=== PATIENT | male | born 1980 | race African-American/Black ===

== ENCOUNTER 2016-06-03 19:07 | Emergency (ER) | payer MEDICAID ==
[2016-06-03 19:12] VITALS: BP 140/86
[2016-06-03] MEDS ORDERED: IBUPROFEN 800 MG TABLET PO ONE (19:30)
--- NOTE | 2016-06-03 19:30 | ER Document Report ---
ED Medical Screen (RME) - General Chief Complaint: Abdominal Pain Stated Complaint: RECTAL BLEEDING Mode of Arrival: Ambulatory Information source: Patient Notes: Patient presents to the emergency department with complaints of rectal bleeding since 12:00 today patient reports approximately 4 bowel movements since noon. Reports blood in the water and in the stool. Denies past medical history of rectal bleed. Denies hemorrhoids. Denies trauma. Reports left upper quadrant abdominal pain. Reports POLANCO. I have greeted and performed a rapid initial assessment of this patient. A comprehensive ED assessment and evaluation of the patient, analysis of test results and completion of the medical decision making process will be conducted by additional ED providers. TRAVEL OUTSIDE OF THE [place] IN LAST 30 DAYS: No - Related Data Allergies/Adverse Reactions: No Known Allergies Allergy (Verified 06/17/14 17:35) Past Medical History Pulmonary Medical History: Reports: Hx Asthma Psychiatric Medical History: Reports: Hx Bipolar Disorder, Hx Depression Past Surgical History: Reports: Hx Tonsillectomy - Immunizations Hx Diphtheria, Pertussis, Tetanus Vaccination: Yes - 2011 Physical Exam - Vital signs Vitals: Temp Pulse Resp BP Pulse Ox 99.1 F 84 14 140/86 H 96 06/03/16 19:11 06/03/16 19:11 06/03/16 19:11 06/03/16 19:11 06/03/16 19:11 Course - Vital Signs Vital signs: Temp Pulse Resp BP Pulse Ox 99.1 F 84 14 140/86 H 96 06/03/16 19:11 06/03/16 19:11 06/03/16 19:11 06/03/16 19:11 06/03/16 19:11
== END 2016-06-04 05:58 | disposition left against medical advice (07) ==
LOC: ER 19:07
DX: K62.5 Hemorrhage of anus and rectum (principal); R10.12 Left upper quadrant pain; R51 Headache; J45.909 Unspecified asthma, uncomplicated; Z53.20 Procedure and treatment not carried out because of patient's decision for unspecified reasons
CPT/HCPCS: 99281

== ENCOUNTER 2016-06-04 07:44 | Emergency (ER) | payer MEDICAID ==
[2016-06-04 08:03] VITALS: BP 144/95
[2016-06-04] MEDS ORDERED: PROCHLORPERAZINE EDISYLATE INJ 10 MG/2 ML VIAL IV ONE (09:24)
[2016-06-04] MEDS ORDERED: DIPHENHYDRAMINE HCL 50 MG/ML VIAL IV ONE (09:24)
[2016-06-04] MEDS ORDERED: NORMAL SALINE 1000 ML 1,000 ML IV ONE (09:25)
[2016-06-04 09:36] LABS: ABSOLUTE BASOPHILS # (AUTO) 0.1 10^3/uL (0.0-0.2); ABSOLUTE EOSINOPHILS # (AUTO) 0.1 10^3/uL (0.0-0.6); ABSOLUTE MONOCYTES (AUTO) 0.7 10^3/uL (0.1-1.4); ABSOLUTE NEUT (AUTO) 6.3 10^3/uL (1.7-8.2); BASOPHILS % (AUTO) 0.8 % (0-2); HEMATOCRIT 44.5 % (37.9-51.0); HEMOGLOBIN 15.1 g/dL (13.5-17.0); HGB HCT DIFFERENCE 0.8; LYMPHOCYTES % (AUTO) 29.9 % (13-45); MEAN CORPUSCULAR HEMOGLOBIN 30.1 pg (27.0-33.4); MEAN CORPUSCULAR VOLUME 88 fl (80-97); MONOCYTES % (AUTO) 6.4 % (3-13); RED BLOOD COUNT 5.03 10^6/uL (4.35-5.55); RED CELL DISTRIBUTION WIDTH 13.9 % (11.5-14.0); SEGMENTED NEUTROPHILS % (AUTO) 61.9 % (42-78); WHITE BLOOD COUNT 10.2 10^3/uL (4.0-10.5)
[2016-06-04 09:51] LABS: ALANINE AMINOTRANSFERASE 23 U/L (21-72); ALBUMIN 4.4 g/dL (3.5-5.0); ALKALINE PHOSPHATASE 88 U/L (38-126); ANION GAP 16 (5-19); ASPARTATE AMINO TRANSFERASE 20 U/L (17-59); BILIRUBIN,DIRECT 0.3 mg/dL (0.0-0.4); BILIRUBIN,TOTAL 0.4 mg/dL (0.2-1.3); BLOOD UREA NITROGEN 13 mg/dL (7-20); CARBON DIOXIDE 24 mmol/L (22-30); CHLORIDE 103 mmol/L (98-107); CREATININE RESULT 0.92 mg/dL (0.52-1.25); GLUCOSE 155 mg/dL (75-110); POTASSIUM 4.4 mmol/L (3.6-5.0); SODIUM 143.4 mmol/L (137-145); TOTAL PROTEIN 7.1 g/dL (6.3-8.2)
--- NOTE | 2016-06-04 10:59 | ER Document Report ---
ED General - General Chief Complaint: Rectal Bleeding Stated Complaint: RECTAL BLEEDING Mode of Arrival: Medic Information source: Patient Notes: 36-year-old male presents as a rectal bleeding bright red with rectal pain however while in the emergency bone patient also admits that he has had headaches intermittently as well as increased thirst. Patient admits to family history of diabetes. Admits to chronic headaches. Patient otherwise denies any fevers or chills denies any abdominal pain denies any vomiting TRAVEL OUTSIDE OF THE [place] IN LAST 30 DAYS: No - HPI Onset: Other Onset/Duration: Intermittent Quality of pain: Achy Severity: Mild Pain Level: 1 Associated symptoms: Other Exacerbated by: Other - Bowel movement Relieved by: Denies Similar symptoms previously: No Recently seen / treated by doctor: No - Related Data Allergies/Adverse Reactions: No Known Allergies Allergy (Verified 06/04/16 07:59) Past Medical History - Social History Smoking Status: Current Every Day Smoker Cigarette use (# per day): Yes Chew tobacco use (# tins/day): No Smoking Education Provided: No Frequency of alcohol use: None Drug Abuse: None Family History: Reviewed & Not Pertinent Patient has suicidal ideation: No Patient has homicidal ideation: No Pulmonary Medical History: Reports: Hx Asthma Renal/ Medical History: Denies: Hx Peritoneal Dialysis Psychiatric Medical History: Reports: Hx Bipolar Disorder, Hx Depression Past Surgical History: Reports: Hx Tonsillectomy - Immunizations Hx Diphtheria, Pertussis, Tetanus Vaccination: Yes - 2011 Review of Systems - Review of Systems Notes: REVIEW OF SYSTEMS: CONSTITUTIONAL : Denies fever, chills, or sweats. Denies recent illness. Admits to increased thirst EENT: Denies eye, ear, throat, or mouth pain or symptoms. Denies nasal or sinus congestion or discharge. Denies throat, tongue, or mouth swelling or difficulty swallowing. CARDIOVASCULAR: Denies chest pain. Denies palpitations or racing or irregular heart beat. Denies ankle edema. RESPIRATORY: Denies cough, cold, or chest congestion. Denies shortness of breath, difficulty breathing, or wheezing. GASTROINTESTINAL: Admits to rectal bleed GENITOURINARY: Denies difficulty urinating, painful urination, burning, frequency, blood in urine, or discharge. MUSCULOSKELETAL: Denies back or neck pain or stiffness. Denies joint pain or swelling. SKIN: Denies rash, lesions or sores. HEMATOLOGIC : Denies easy bruising or bleeding. LYMPHATIC: Denies swollen, enlarged glands. NEUROLOGICAL: Admits to headache PSYCHIATRIC: Denies anxiety or stress. Denies depression, suicidal ideation, or homicidal ideation. ALL OTHER SYSTEMS REVIEWED AND NEGATIVE. Dictation was performed using [employer] recognition software PHYSICAL EXAMINATION: GENERAL: Well-appearing, well-nourished and in no acute distress. HEAD: Atraumatic, normocephalic. EYES: Pupils equal round and reactive to light, extraocular movements intact, sclera anicteric, conjunctiva are normal. ENT: Nares patent, oropharynx clear without exudates. Moist mucous membranes. NECK: Normal range of motion, supple without lymphadenopathy LUNGS: Breath sounds clear to auscultation bilaterally and equal. No wheezes rales or rhonchi. HEART: Regular rate and rhythm without murmurs ABDOMEN: Soft, nontender, nondistended abdomen. No guarding, no rebound. No masses appreciated. Musculoskeletal: Normal range of motion, no pitting or edema. No cyanosis. Tender external hemorrhoid nonthrombosed NEUROLOGICAL: Cranial nerves grossly intact. Normal speech, normal gait. Normal sensory, motor exams PSYCH: Normal mood, normal affect. SKIN: Warm, Dry, normal turgor, no rashes or lesions noted. Physical Exam - Vital signs Vitals: Temp Pulse Resp BP Pulse Ox 98.5 F 83 16 144/95 H 98 06/04/16 08:01 06/04/16 08:01 06/04/16 08:01 06/04/16 08:01 06/04/16 08:01 Course - Re-evaluation Re-evalutation: 06/04/16 15:59 No significant abnormality, mild hyperglycemia was noted, given patient's increased thirst he must follow-up with a primary care physician for reevaluation. Patient is noted to have an external hemorrhoid which is not thrombosed which is probably causing his rectal bleeding. Patient was treated for his headache and is stable and wishes to be discharged home 06/04/16 16:00 After performing a Medical Screening Examination, I estimate there is LOW risk for ACUTE GLAUCOMA, TEMPORAL ARTERITIS, MENINGITIS, INCRANIAL HEMORRHAGE, or ISCHEMIC STROKE thus I consider the discharge disposition reasonable. The patient and I have discussed the diagnosis and risks, and we agree with discharging home with close follow-up with the understanding that symptoms and presentations can change. We also discussed returning to the Emergency Department immediately if new or worsening symptoms occur. We have discussed the symptoms which are most concerning (e.g., changing or worsening symptoms, new numbness or weakness, vomiting, fever) that necessitate immediate return. - Vital Signs Vital signs: Temp Pulse Resp BP Pulse Ox 98.2 F 80 16 144/95 H 98 06/04/16 11:24 06/04/16 11:24 06/04/16 11:24 06/04/16 11:24 06/04/16 11:24 - Laboratory Result Diagrams: 06/04/16 08:55 06/04/16 08:55 Laboratory results interpreted by me: 06/04/16 08:55 Glucose 155 H - Diagnostic Test Radiology reviewed: Image reviewed, Reports reviewed - EKG Interpretation by Me EKG shows normal: Sinus rhythm, [place], Intervals, QRS Complexes Discharge - Discharge Clinical Impression: External hemorrhoid, Hyperglycemia Headache Qualifiers: Headache type: unspecified Headache chronicity pattern: acute headache Intractability: not intractable Qualified Code(s): R51 - Headache Condition: Stable Disposition: HOME, SELF-CARE Instructions: Rectal Bleeding, Unclear Cause ([facility]) Additional Instructions: You must follow-up with a primary care physician regarding your blood sugar. You must return immediately if there are any other concerns Prescriptions: Promethazine HCl [Phenergan 25 mg Tablet] 1 - 2 tab PO Q6H PRN #15 tablet PRN Reason:
== END 2016-06-04 11:23 | disposition home or self-care (01) ==
LOC: ER 07:44
DX: K64.4 Residual hemorrhoidal skin tags (principal); R73.9 Hyperglycemia, unspecified; R51 Headache; K62.5 Hemorrhage of anus and rectum; F17.210 Nicotine dependence, cigarettes, uncomplicated
CPT/HCPCS: 99283; 96374; 96375; 36415; 85025; 80053; J1200; J0780; J7030

== ENCOUNTER 2018-09-21 13:20 | Emergency (ER) | payer MEDICAID ==
--- NOTE | 2018-09-21 14:12 | RADIOLOGY REPORT (SQ) ---
EXAM DESCRIPTION: CHEST 2 VIEWS COMPLETED DATE/TIME: 09/21/2018 2:03 pm REASON FOR STUDY: Stroke Alert COMPARISON: 01/11/2008 TECHNIQUE: Frontal and lateral radiographic views of the chest acquired. NUMBER OF VIEWS: Two view. LIMITATIONS: None. FINDINGS: LUNGS AND PLEURA: No pneumothorax. No consolidation or pleural effusion. MEDIASTINUM AND HILAR STRUCTURES: Stable. HEART AND VASCULAR STRUCTURES: Stable. BONES: No acute findings. HARDWARE: None in the chest. OTHER: No other significant finding. IMPRESSION: NO ACUTE FINDINGS. TECHNICAL DOCUMENTATION: JOB ID: [id number] [id number] 2010 [employer]- All Rights Reserved Reading location - IP/workstation name: [email or web address]
[2018-09-21] MEDS ORDERED: ASPIRIN 81 MG TABLET, CHEWABLE PO ONE (15:28)
--- NOTE | 2018-09-21 15:30 | ER Document Report ---
ED Medical Screen (RME) - General Chief Complaint: Chest Pain Stated Complaint: CHEST PAIN Time Seen by Provider: 09/21/18 15:27 Mode of Arrival: Ambulatory Information source: Patient Notes: 38-year-old male presented to ED for complaint of chest pain. He states he went to his primary care doctor they gave him some nitroglycerin and one baby aspirin called 911 and sending to the emergency room he does have his EKG from his previous visit this visit and the EMS as well as the EKG from his visit this time. He states the only medical history he has his arthritis. He states he does smoke a pack a day rarely drinks occasionally pot. He states he does not work at this time lives with his family. Patient is alert and oriented respirations regular and unlabored speaking in full sentences walks with a even steady gait. TRAVEL OUTSIDE OF THE [place] IN LAST 30 DAYS: No - Related Data Allergies/Adverse Reactions: Antihistamines - Alkylamine Allergy (Verified 09/21/18 13:30) peanut Allergy (Verified 09/21/18 13:30) Past Medical History Pulmonary Medical History: Reports: Hx Asthma Renal/ Medical History: Denies: Hx Peritoneal Dialysis Psychiatric Medical History: Reports: Hx Bipolar Disorder, Hx Depression Past Surgical History: Reports: Hx Tonsillectomy - Immunizations Hx Diphtheria, Pertussis, Tetanus Vaccination: Yes - 2011 Physical Exam - Vital signs Vitals: Temp Pulse Resp BP Pulse Ox 98.3 F 96 20 132/93 H 96 09/21/18 14:39 09/21/18 14:39 09/21/18 14:39 09/21/18 14:39 09/21/18 14:39 Course - Vital Signs Vital signs: Temp Pulse Resp BP Pulse Ox 98.3 F 96 20 132/93 H 96 09/21/18 14:39 09/21/18 14:39 09/21/18 14:39 09/21/18 14:39 09/21/18 14:39
[2018-09-21 16:54] LABS: ABSOLUTE BASOPHILS # (AUTO) 0.1 10^3/uL (0.0-0.2); ABSOLUTE EOSINOPHILS # (AUTO) 0.1 10^3/uL (0.0-0.6); ABSOLUTE LYMPHOCYTES (AUTO) 3.8 10^3/uL (0.5-4.7); ABSOLUTE MONOCYTES (AUTO) 0.9 10^3/uL (0.1-1.4); BASOPHILS % (AUTO) 0.7 % (0-2); EOSINOPHILS % (AUTO) 0.6 % (0-6); HEMATOCRIT 44.6 % (37.9-51.0); HEMOGLOBIN 14.9 g/dL (13.5-17.0); LYMPHOCYTES % (AUTO) 29.4 % (13-45); MEAN CORPUSCULAR HEMOGLOBIN 29.1 pg (27.0-33.4); MEAN CORPUSCULAR HGB CONC 33.5 g/dL (32.0-36.0); MEAN CORPUSCULAR VOLUME 87 fl (80-97); PLATELET COUNT 394 10^3/uL (150-450); RED BLOOD COUNT 5.12 10^6/uL (4.35-5.55); RED CELL DISTRIBUTION WIDTH 14.4 % (11.5-14.0); SEGMENTED NEUTROPHILS % (AUTO) 62.3 % (42-78); TOTAL CELLS COUNTED % (AUTO) 100 %; WHITE BLOOD COUNT 12.8 10^3/uL (4.0-10.5)
[2018-09-21 17:12] LABS: ALANINE AMINOTRANSFERASE 30 U/L (21-72); ALBUMIN 4.9 g/dL (3.5-5.0); ALKALINE PHOSPHATASE 84 U/L (38-126); ANION GAP 12 (5-19); ASPARTATE AMINO TRANSFERASE 24 U/L (17-59); BILIRUBIN,DIRECT 0.2 mg/dL (0.0-0.4); BILIRUBIN,TOTAL 0.5 mg/dL (0.2-1.3); BLOOD UREA NITROGEN 14 mg/dL (7-20); CALCIUM 10.3 mg/dL (8.4-10.2); CARBON DIOXIDE 26 mmol/L (22-30); CHLORIDE 104 mmol/L (98-107); CREATINE KINASE 99 U/L (55-170); GLUCOSE 90 mg/dL (75-110); LIPASE 77.1 U/L (23-300); POTASSIUM 4.2 mmol/L (3.6-5.0); SODIUM 141.8 mmol/L (137-145); TOTAL PROTEIN 8.1 g/dL (6.3-8.2)
[2018-09-21 17:23] LABS: CREATINE KINASE MB 0.45 ng/mL (<4.55); TROPONIN I 0.014 ng/mL
[2018-09-21 18:28] LABS: INTERNATIONAL RATION (INR) 0.99; PROTHROMBIN TIME 13.1 SEC (11.4-15.4)
[2018-09-22] MEDS ORDERED: METHOCARBAMOL 750 MG TABLET PO ONE (00:49)
[2018-09-22 02:23] VITALS: BP 138/91
--- NOTE | 2018-09-22 07:08 | ER Document Report ---
Entered by SHARLENE ROBERTS SCRIBE 09/21/18 2241 Acting as scribe for:JUAN MANUEL AYALA DO ED General - General Chief Complaint: Chest Pain Stated Complaint: CHEST PAIN Time Seen by Provider: 09/21/18 15:27 Primary Care Provider: THOMAS CONCEPCION MD [ACTIVE STAFF] - Follow up as needed RO DIAZ MD [ACTIVE STAFF] - Follow up as needed DEMETRIA HORNER MD [ACTIVE STAFF] - Follow up as needed MOR WOODSON MD [COMMUNITY BASED STAFF] - Follow up as needed Mode of Arrival: Ambulatory Notes: Patient is a 38-year-old male presenting to the emergency department complaining of chest pain. Patient states that he is also experiencing a headache, loss of sleep, shortness of breath. Patient states that his chest pain feels like heart pain, and that he can "see thumbprint pushing down when I touch it". Patient states that he has been experiencing the chest pain for about a month. Patient states that he has always had some type of headache, and shortness of breath, but they got worse when the chest pain began. Patient states that when he wakes up in the morning for 10 to 20 minutes he feels fine, and then the pain begins and is constant through the entire day until he goes back to sleep. Patient states that when sleeping on his side his arm will go numb but otherwise denies numbness or tingling. Patient used to take medication for his arthritic back pain, he does not anymore. Patient also is also supposed to have medication prescribed for his elevated blood pressure but he stopped taking it because it caused erectile dysfunction. TRAVEL OUTSIDE OF THE [place] IN LAST 30 DAYS: No - Related Data Allergies/Adverse Reactions: Antihistamines - Alkylamine Allergy (Verified 09/21/18 13:30) peanut Allergy (Verified 09/21/18 13:30) Past Medical History - General Information source: Patient - Social History Smoking Status: Current Every Day Smoker Cigarette use (# per day): Yes Frequency of alcohol use: Rare Drug Abuse: Marijuana Family History: CVA - grandmother in her 40s Patient has suicidal ideation: No Patient has homicidal ideation: No Pulmonary Medical History: Reports: Hx Asthma Renal/ Medical History: Denies: Hx Peritoneal Dialysis Psychiatric Medical History: Reports: Hx Bipolar Disorder, Hx Depression Past Surgical History: Reports: Hx Tonsillectomy - Immunizations Hx Diphtheria, Pertussis, Tetanus Vaccination: Yes - 2011 Review of Systems - Review of Systems Constitutional: No symptoms reported EENT: No symptoms reported Cardiovascular: See HPI, Chest pain Respiratory: See HPI, Short of breath Gastrointestinal: No symptoms reported Genitourinary: No symptoms reported Male Genitourinary: No symptoms reported Musculoskeletal: No symptoms reported Skin: No symptoms reported Hematologic/Lymphatic: No symptoms reported Neurological/Psychological: See HPI, Headaches, Numbness - Upper extremities upon sleeping on either -: Yes All other systems reviewed and negative Physical Exam - Vital signs Vitals: Temp Pulse Resp BP Pulse Ox 98.3 F 96 20 132/93 H 96 09/21/18 14:39 09/21/18 14:39 09/21/18 14:39 09/21/18 14:39 09/21/18 14:39 - Notes Notes: PHYSICAL EXAM GENERAL: Alert, interacts well. No acute distress, patient states he has his "normal" pain currently. HEAD: Normocephalic, atraumatic. EYES: Pupils equal, round, and reactive to light. Extraocular movements intact. ENT: Oral mucosa moist, tongue midline. NECK: Palpation of left trapezius musculature helps decrease the headache, no tenderness with palpation of the trapezius musculature. Full range of motion. Supple. Trachea midline. LUNGS: Clear to auscultation bilaterally, no wheezes, rales, or rhonchi. No respiratory distress. HEART: Regular rate and rhythm. No murmurs, gallops, or rubs. ABDOMEN: Soft, non-tender. Non-distended. Bowel sounds present in all 4 quadrants. No guarding, rigidity, or rebound. EXTREMITIES: Moves all 4 extremities spontaneously. No edema, radial and dorsalis pedis pulses 2/4 bilaterally. No cyanosis. NEUROLOGICAL: Alert and oriented x3. Normal speech. Biceps and patellar DTRs 2+ bilaterally. PSYCH: Normal affect, normal mood. SKIN: Warm, dry, normal turgor. No rashes or lesions noted. Course - Re-evaluation Re-evalutation: 09/22/18 00:30 CBC shows mild leukocytosis at 12.8, coags normal, CMP unremarkable, no hyperglycemia, initial troponin negative at 0.014, repeat troponin V hours later negative, actually entirely undetectable. Chest x-ray shows no acute process. Initial EKG shows sinus tachycardia at a rate of 112, normal axis, normal intervals, no ST segment elevations or depressions, there are T wave inversions noted in lead III and aVF per my interpretation. Repeat EKG at 00:14 shows sinus rhythm and rate of 75, normal axis, normal intervals, no significant ST segment elevations, or depressions, there are T wave inversions in 3 and aVF, new T wave inversions in V3 and V4 4, V5 and V6 compared to prior per my interpretation. These changes are not associated with any change in his pain. Pain has been constant throughout the day for the past month and leaves at night. Resting during the day does not resolve it. Patient does not have any significant risk factors. Heart score is 1. Patient does have outpatient follow-up with primary care physician Dr. Mor Woodson. Patient has been instructed to follow-up with him as an outpatient and arrange an outpatient stress test. Patient will be discharged home. Patient is also going to be offered muscle relaxer in the form of Robaxin as his neck pain decreases with palpation of the right trapezius muscle. 09/22/18 00:50 Patient had previously been taking antihypertensives, he is borderline hypertensive, I did agree to start him on a very low dose of hydrochlorothiazide and have him follow-up with Dr. Woodson as an outpatient for further titration. - Vital Signs Vital signs: Temp Pulse Resp BP Pulse Ox 98 F 66 18 138/91 H 97 09/22/18 00:15 09/22/18 00:15 09/22/18 00:15 09/22/18 00:15 09/22/18 00:15 - Laboratory Result Diagrams: 09/21/18 16:30 09/21/18 16:30 Laboratory results interpreted by me: 09/21/18 09/21/18 16:30 16:30 WBC 12.8 H RDW 14.4 H Calcium 10.3 H - EKG Interpretation by Me Additional EKG results interpreted by me: 09/22/18 00:32 Initial EKG shows sinus tachycardia at a rate of 112, normal axis, normal intervals, no ST segment elevations or depressions, there are T wave inversions noted in lead III and aVF per my interpretation. Repeat EKG at 00:14 shows sinus rhythm and rate of 75, normal axis, normal intervals, no significant ST segment elevations, or depressions, there are T wave inversions in 3 and aVF, new T wave inversions in V3 and V4 4, V5 and V6 compared to prior per my interpretation. Discharge - Discharge Clinical Impression: Chest pain of uncertain etiology Headache Qualifiers: Headache type: unspecified Headache chronicity pattern: chronic headache Intractability: intractable Qualified Code(s): R51 - Headache Hypertension Qualifiers: Hypertension type: unspecified Qualified Code(s): I10 - Essential (primary) hypertension Condition: Stable Disposition: HOME, SELF-CARE Additional Instructions: Chest Pain of Unclear Cause The exact cause of your chest pain isn't clear. Fortunately, there is no tomasa dence of a dangerous medical condition. Further testing may be required to find the source of the pain. It is possible that this is coming from your heart even though it is not causing heart attack. Please call Dr. Woodson as an outpatient to arrange a stress test. Today you had 2- troponins and 2 EKGs that did not show heart attack however they did show some changes that need to be followed up with a stress test within the next month. Most often, we find that this pain is coming from the chest wall -- the muscles or rib joints in the chest. But chest pain can come from the lung and [place] lining, the esophagus, the heart valves or heart lining, and even the stomach or gallbladder. Rest. Eat lightly until the pain is gone. We may prescribe medicine for pain and inflammation. You should call the physician immediately if the pain radiates to the shoulder, jaw or arms; if you start to run a fever or develop a cough; or if you develop shortness of breath, or other new or alarming symptoms. I have prescribed you a muscle relaxer that will hopefully help with the pain in your neck and your head. Prescriptions: Hydrochlorothiazide 12.5 mg PO BID #60 tablet Methocarbamol [Robaxin 750 mg Tablet] 750 mg PO ASDIR PRN #40 tablet PRN Reason: Referrals: MOR WOODSON MD [COMMUNITY BASED STAFF] - Follow up as needed DEMETRIA HORNER MD [ACTIVE STAFF] - Follow up as needed RO DIAZ MD [ACTIVE STAFF] - Follow up as needed THOMAS CONCEPCION MD [ACTIVE STAFF] - Follow up as needed I personally performed the services described in the documentation, reviewed and edited the documentation which was dictated to the scribe in my presence, and it accurately records my words and actions.
--- NOTE | 2018-09-23 07:51 | EKG REPORT ---
SEVERITY:- ABNORMAL ECG - SINUS TACHYCARDIA LEFT ATRIAL ABNORMALITY NONSPECIFIC T ABNORMALITIES, INFERIOR LEADS : Confirmed by: Shashank Alejo MD 23-Sep-2018 07:50:39
--- NOTE | 2018-09-23 07:51 | EKG REPORT ---
SEVERITY:- ABNORMAL ECG - SINUS RHYTHM ABNORMAL T, CONSIDER ISCHEMIA, DIFFUSE LEADS BORDERLINE ST ELEVATION, ANTERIOR LEADS : Confirmed by: Shashank Alejo MD 23-Sep-2018 07:50:25
== END 2018-09-22 00:50 | disposition home or self-care (01) ==
LOC: ER 13:20
DX: R07.9 Chest pain, unspecified (principal); R51 Headache; R06.02 Shortness of breath; R00.0 Tachycardia, unspecified; I10 Essential (primary) hypertension; F17.210 Nicotine dependence, cigarettes, uncomplicated
CPT/HCPCS: 93005; 99285; 36415; 82553; 82550; 83690; 85025; 85610; 80053; 84484; 71046; 93010; J3490

== ENCOUNTER → 2019-08-05 | Outpatient (CLI) | payer MEDICAID ==
--- NOTE | 2019-08-05 14:36 | RADIOLOGY REPORT (SQ) ---
EXAM DESCRIPTION: ORBITS 4 VIEWS IMAGES COMPLETED DATE/TIME: 08/05/2019 1:09 pm REASON FOR STUDY: CONTUSION OF EYEBALL AND ORBITAL TISSUES, LEFT EYE, INIT S05.12XA CONTUSION OF EY EBALL AND ORBITAL TISSUES, LEFT EYE, COMPARISON: None. NUMBER OF VIEWS: Five views TECHNIQUE: Images of the facial bones acquired. LIMITATIONS: None. FINDINGS: ORBITS: No fracture. No foreign body. SINUSES: No mucosal thickening. No air fluid levels. FACIAL BONES: No fracture. OTHER: No other significant finding. IMPRESSION: No acute displaced fracture. No air-fluid levels in the paranasal sinuses TECHNICAL DOCUMENTATION: JOB ID: [id number] 2010 [employer]- All Rights Reserved Reading location - IP/workstation name: [email or web address]
== END ==
LOC: OD 12:08
PROVIDERS: ATTEND Nurse Practitioner Family
DX: S05.12XA Contusion of eyeball and orbital tissues, left eye, initial encounter (principal); X58.XXXA Exposure to other specified factors, initial encounter
CPT/HCPCS: 70200